=== PATIENT | male | born 1955 | race Two or more races ===

== ENCOUNTER 2024-09-21 09:07 | Emergency (ER) | payer OTHER ==
[~2024-09-21] VITALS: Ht 165.1 cm; Wt 67.6 kg
[2024-09-21] MEDS ORDERED: LOSARTAN POTAS100 MG PO (09:41)
[2024-09-21] MEDS ORDERED: CLONAZEPAM1 MG PO (09:56)
[2024-09-21] MEDS ORDERED: RISPERDAL1 MG (09:57)
[2024-09-21] MEDS ORDERED: ECOTRIN81 MG (09:57)
[2024-09-21] MEDS ORDERED: AZOR 5-40 MG T1 EACH (09:57)
[2024-09-21] MEDS ORDERED: POTASSIUM CITR15 MEQ (09:58)
[2024-09-21] MEDS ORDERED: cloNIDine HCL 0.2 MG TABLET PO STA (10:29)
[2024-09-21] MEDS ORDERED: KETOROLAC TROMETHAMINE 60 MG VIAL IM STA (10:30)
[2024-09-21] MEDS ORDERED: CLONIDINE HCL 0.1 MG TABLET PO ONE (10:56)
[2024-09-21] MEDS ORDERED: KETOROLAC TROMETHAMINE 60 MG VIAL IM ONE (10:56)
[2024-09-21 11:35] LABS: HEMATOCRIT 39.5 % (39.0-48.0); HEMOGLOBIN 13.7 g/dL (13-16.00); MEAN CELL VOLUME 92.8 fL (80.0-100.00); MEAN CORPUSCULAR HEMOGLOBIN 32.1 pg (27.00-32.0); MEAN CORPUSCULAR HGB CONC 34.6 g/dl (32.0-36.0); PLATELET COUNT 271 K/uL (150-450); RED BLOOD COUNT 4.26 M/uL (4.00-6.00)
[2024-09-21 11:40] LABS: PH,URINE 7.5 (5.0-8.0); URINE APPEARANCE Clear; URINE BILIRRUBIN Negative (NEGATIVE); URINE BLOOD Negative; URINE COLOR Yellow; URINE GLUCOSE Negative (NEGATIVE); URINE KETONE Negative (NEGATIVE); URINE LEUKOCYTE Negative; URINE NITRATE Negative; URINE PROTEIN Negative (NEGATIVE); URINE UROBILINOGEN 0.2 E.U./dl
[2024-09-21 12:16] LABS: URINE BACTERIA 3.6 uL (0.0-1933); URINE EPITHELIAL CELLS 0.9 uL (0.0-38.8); URINE RBC 1.7 uL (0.0-20.8); URINE WBC 1.7 uL (0.0-23.2)
== END 2024-09-21 14:27 | disposition home or self-care (01) ==
LOC: ER 09:09
PROVIDERS: General Practice
DX: M94.0 Chondrocostal junction syndrome [Tietze] (principal); I10 Essential (primary) hypertension